=== PATIENT | female | born 1950 | race Native Hawaiian/Other Pacific Islander ===

== ENCOUNTER 2018-12-12 18:21 | Emergency (ER) | payer OTHER ==
[~2018-12-12] VITALS: Ht 154.9 cm; Wt 56.7 kg
[~2018-12-12 18:21] MED LIST: ACET7.5T70 PO; ALLO300T23 PO; AMBIEN CR12.5 MG PO; ASA LO-DOSE81 MG OR; CITA20TA2 PO; DULO30CA OR; MULTIVITAMI1 PO; VIMOVO1 TA1 OR
[2018-12-12 21:25] VITALS: BP 170/59; TEMP 98.2
== END 2018-12-12 21:25 | disposition home or self-care (01) ==
LOC: ED 18:21
DX: S80.11XA Contusion of right lower leg, initial encounter (principal); M79.604 Pain in right leg; W37.8XXA Explosion and rupture of other pressurized tire, pipe or hose, initial encounter; Y92.89 Other specified places as the place of occurrence of the external cause
CPT/HCPCS: 99283